=== PATIENT | female | born 1965 | race Hispanic/Latino ===

== ENCOUNTER 2016-04-13 17:01 | Emergency (ER) | payer MEDICARE ==
[2016-04-13 17:17] VITALS: BP 131/90
--- NOTE | 2016-04-13 20:52 | Emergency Department Report ---
HPI - General Chief Complaint: Eye Problems Time Seen by Provider: 04/13/16 20:40 - HPI HPI: Patient here reports that she was redness to both her eyes she said it started off in the left and went to the right. She said this has been going on for 1 day. Reports swelling around her eyelids and drainage to both eyes. She denies any foreign body sensation or any chest trauma to her eye. She says she is having itching eyes 2 out of 10 but she is not having any pain. Denies any fever or chills. Denies coughing, shortness of breath or chest pain. [facility] and was exposed to someone with pink eye ED Past Medical Hx - Past Medical History Previous Medical History?: Yes Hx Hypertension: Yes Hx Psychiatric Treatment: Yes (DEPRESSION, BIPOLAR, SCHIZOPHRENIA) - Surgical History Past Surgical History?: No - Family History Family history: no significant - Social History Smoking Status: Current Every Day Smoker Substance Use Type: None - Medications Home Medications: Home Medications Medication Instructions Recorded Confirmed Last Taken Type Gentamicin 0.3% Ophth Soln 2 drops OU Q4H #1 bottle 04/13/16 Unknown Rx ED Review of Systems ROS: Stated complaint: POSS PINK EYE Other details as noted in HPI Comment: All other systems reviewed and negative Constitutional: denies: chills, fever Eyes: eye discharge, other (bilateral eye drainage and itching) ENT: denies: ear pain, throat pain, congestion Respiratory: no symptoms reported Cardiovascular: denies: chest pain, palpitations, edema, syncope Musculoskeletal: denies: back pain Skin: denies: rash Neurological: denies: headache Physical Exam - Physical Exam Vital Signs: Vital Signs 04/13/16 17:10 Temperature 97.8 F Pulse Rate 92 H Blood Pressure 131/90 O2 Sat by Pulse 100 Oximetry General: 50-year-old female well-nourished well-developed in no acute distress. Physical Exam: Head: Normocephalic atraumatic Mouth: Moist, no pharyngeal exudate or erythema. Uvula is midline and oral airway is patent. No gingival enlargement or dental tenderness. No facial swelling. No peritonsillar abscesses. Neck: Supple, no C-spine tenderness, no tracheal deviation. Nontender to palpate. no adenopathy Ears: Bilateral TMs pearly fuentes.bilateral EAC without any redness swelling or drainage Eyes: Bilateral pupils equal and reactive to light, bilateral EOM intact. Bilateral sclera and conjunctiva with injection. Visual acuity 20/40 right eye , 20/50 left eye and 20/25 both eyes. Normal accommodation Nose: Mucosa moist, normal mucosa maxillary and frontal sinus non-tender to palpate. Lungs: Clear to auscultate bilaterally no rhonchi wheezes or rales. Normal work of breathing extremity; No CCE. +2 pulses. No neurovascular compromise Cardiovascular: S1-S2, regular rate rhythm. No murmurs. Skin: clean Dry and intact no rash no lesions Psych: Normal mood and behavior ED Course Vital Signs 04/13/16 17:10 Temperature 97.8 F Pulse Rate 92 H Blood Pressure 131/90 O2 Sat by Pulse 100 Oximetry - Reevaluation(s) Reevaluation #1: 04/13/16 21:41 Stable throughout ED course ED Medical Decision Making - Medical Decision Making ED course: Discussed with patient that she has pinkeye in both eye and will be treated with antibiotic eyedrop. I explained to her that she will need to follow-up with cardiopulmonary technologist in 3-5 days. Patient was understanding the discharge instruction discharged home with prescription for gentamicin ophthalmic. Critical care attestation.: If time is entered above; I have spent that time in minutes in the direct care of this critically ill patient, excluding procedure time. ED Disposition Clinical Impression: Conjunctivitis, both eyes Qualifiers: Conjunctivitis type: unspecified Qualified Code(s): H10.9 - Unspecified conjunctivitis Disposition: DISCHARGED TO HOME OR SELFCARE Is pt being admited?: No Does the pt Need Aspirin: No Condition: Stable Instructions: Conjunctivitis (ED) Prescriptions: Gentamicin 0.3% Ophth Soln 2 drops OU Q4H #1 bottle Referrals: YESY CENTENO MD [Primary Care Provider] - 3-5 Days JONAS HUBBARD MD [Staff Physician] - 04/14/16 Forms: Work/School Release Form(ED)
== END 2016-04-13 22:04 | disposition home or self-care (01) ==
LOC: ED 17:01
DX: H10.9 Unspecified conjunctivitis (principal); I10 Essential (primary) hypertension; F31.9 Bipolar disorder, unspecified; F20.9 Schizophrenia, unspecified; F17.200 Nicotine dependence, unspecified, uncomplicated
CPT/HCPCS: 99282